=== PATIENT | male | born 1950 | race Caucasian/White ===

== ENCOUNTER 2022-03-14 09:36 | Emergency (ER) | payer BC, SELFPAY ==
[2022-03-14 09:38] VITALS: BP 192/98; PULSE 63; RESP 16; TEMP 36.5; O2SAT 100; BMI 21.1
--- NOTE | 2022-03-14 09:50 | ED.NEUROSD ---
HPI - Neuro Symptoms/Deficit General Chief Complaint: Neuro Symptoms/Deficit Stated Complaint: lightheaded, disoriented, shoulder/neck pain Time Seen by Provider: 03/14/22 09:49 Source: patient Mode of arrival: Ambulatory History of Present Illness HPI Narrative: Patient is a 71-year-old male history of TIA diabetes hypothyroid presenting today with some vague like symptoms. Feels like the last few days he wakes up every morning feels like his heart is pounding he has some lightheadedness. Sometimes it lasts throughout the day. He has not passed out. He has noticed some left-sided neck and arm achiness. He does not call it weakness. There is no numbness or tingling. He feels like he is having some trouble getting some words out although I do not appreciate such well conversing with him. Previously his TIA presented with left arm tingling and left eye visual field change. He is supposed to take aspirin but because of the bruising he stopped taking aspirin. Currently under lots of stress. He is here from [place] trying to get his mother into memory care. He says at night he has woken up drenching in sweat soaking through T shirts and sheets. For the last 2 years he occasionally gets a big chilled but really has not had fever or chills. He denies any cough pad. He has no chest heaviness or discomfort just occasional palpitations. On Anticoagulants: No Related Data Allergies Allergy/AdvReac Type Severity Reaction Status Date / Time No Known Drug Allergies Allergy Verified 03/14/22 09:48 Review of Systems Review of Systems Narrative: GENERAL: Denies chills, fatigue, malaise, fever, sweats, travel HEENT: Denies sinus pain, ear pain, sore throat, difficulty swallowing, neck pain RESPIRATORY: Denies dyspnea, cough, wheezing, hemoptysis, sputum. CARDIOVASCULAR: Denies chest pain, palpitations, orthopnea, edema GASTROINTESTINAL: Denies nausea, vomiting, abdominal pain, diarrhea, constipation, melena. : Denies dysuria, frequency, incontinence, hematuria, urinary retention, flank pain. MUSCULOSKELETAL: Denies weakness, joint pain, or bony pain SKIN: No rash, no erythema, no pruritus NEUROLOGIC: See HPI PSYCHIATRIC: No concerning psychosocial issues. 12 point review of systems is negative except for those stated above and HPI Hematologic/Lymphatic On Anticoagulants: No Patient History Medical History TIA (transient ischemic attack) Social History Smoking Status: Former smoker Smoking Status: Former smoker alcohol intake frequency: holidays/special occasions only Substance Use Type: marijuana Exam Initial Vital Signs Initial Vital Signs: Vital Signs Temperature 97.7 F 03/14/22 09:38 Pulse Rate 63 03/14/22 09:38 Respiratory Rate 16 03/14/22 09:38 Blood Pressure 192/98 H 03/14/22 09:38 Pulse Oximetry 100 03/14/22 09:38 Oxygen Delivery Method 03/14/22 09:38 GENERAL: Alert pleasant 71-year-old male and in no acute distress. HEENT: Head atraumatic,EOMI, pupils reactive, face symmetric, moist mucous membranes CARDIOVASCULAR: Regular rate and rhythm without murmurs, rubs or gallops. RESPIRATORY: Breath sounds equal bilaterally, no wheezes rales or rhonchi. ABDOMEN: Soft, nontender. Normoactive bowel sounds all 4 quadrants. No guarding or rebound. EXTREMITIES: Normal range of motion, no clubbing or edema. Neurovascularly intact NEUROLOGICAL: Alert and oriented x4.Normal gait and speech. Cranial nerves II through XII grossly intact. Good nlyidx-ey-riik, good rimj-xd-[id number], strength equal bilaterally, no dysarthria or aphasia, sensation in tact to soft touch bilaterally, no visual changes, no facial droop SKIN: Warm, dry, no laceration, no petechiae, no rashes or lesions. Scores NIH Stroke Scale Level of Conciousness: Alert, keenly responsive Ask month/age: Answers both questions correctly. Open/close eyes, close hand: Performs both tasks correctly Best gaze horizontal: Normal Visual paez: No visual loss Facial palsy: Normal symetrical movement Left arm drift: No drift for full 10 sec Right arm drift: No drift for full 10 sec Left leg drift: No drift for full 5 sec Right leg drift: No drift for full 5 sec Limb ataxia: Absent Sensory on face/arms/legs: Normal, no sensory loss Best language: No aphasia, normal Dysarthria: Normal Extinction or inattention: No abnormality Total NIH Stroke scale score: 0 Course Orders Ordered: ED Orders 03/14/22 09:48 Complete Blood Count AUTO DIFF Stat Comprehensive Metabolic Panel Stat Lipase Stat Partial Thromboplastin Time Stat Prothrombin Time INR Stat Troponin & CK Cardiac Panel Stat 03/14/22 10:01 CT angio head and neck Stat XR chest 1V Stat 03/14/22 10:07 EKG-12 Lead Stat Discontinued Medications Aspirin (Aspirin 81 Mg Chew Tab) 324 mg PO NOW ONE Stop: 03/14/22 10:02 Last Admin: 03/14/22 10:16 Dose: 324 mg Documented By: [facility] Vital Signs Vital signs: Vital Signs - 8 hr 03/14/22 09:38 03/14/22 10:14 03/14/22 10:15 Temperature 97.7 F Pulse Rate 63 69 Respiratory Rate 16 Blood Pressure 192/98 H 169/91 H Pulse Oximetry 100 Oxygen Delivery Method Room Air 03/14/22 10:15 03/14/22 10:30 03/14/22 10:30 Temperature Pulse Rate 61 64 Respiratory Rate 14 17 Blood Pressure 176/88 H Pulse Oximetry 97 Oxygen Delivery Method 03/14/22 10:45 03/14/22 10:45 03/14/22 11:00 Temperature Pulse Rate 56 L Respiratory Rate 16 Blood Pressure 163/84 H 159/81 H Pulse Oximetry 99 Oxygen Delivery Method 03/14/22 11:00 Temperature Pulse Rate 60 Respiratory Rate 12 Blood Pressure Pulse Oximetry 99 Oxygen Delivery Method MDM - Neuro Symptoms/Deficit Lab Data Result diagrams: 03/14/22 09:48 03/14/22 09:48 Labs: Lab Results 03/14/22 03/14/22 03/14/22 Range/Units 09:48 09:48 09:48 WBC 6.1 (4.5-11.0) X10^3/uL RBC 4.92 (4.5-5.9) X10^6/uL Hgb 15.2 (13.5-17.5) g/dL Hct 44.3 (41-53) % MCV 90.0 (80-100) fL MCH 30.8 (26-34) PG MCHC 34.2 (30-36) % RDW 14.3 (11.6-14.8) % Plt Count 197 (150-400) X10^3/uL Neut % (Auto) 68.7 (50-75) % Lymph % (Auto) 19.7 L (25-40) % [place] % (Auto) 9.2 (3-14) % Eos % (Auto) 1.8 L (2-4) % Baso % (Auto) 0.6 (0-2) % Neut # (Auto) 4200 (0458-3025) /uL Lymph # (Auto) 1200 (4094-7834) /uL [place] # (Auto) 600 (0-900) /uL Eos # (Auto) 100 (0-450) /uL Baso # (Auto) 0 (0-100) /uL PT 11.8 (10.1-12.7) SECONDS INR 1.0 (0.9-1.3) APTT 33 (26-36) SECONDS Sodium 141 (137-145) mmol/L Potassium 4.1 (3.4-5.1) mmol/L Chloride 104 (98-107) mmol/L Carbon Dioxide 29 (22-32) mmol/L BUN 14 (9-20) mg/dL Creatinine 0.77 (0.66-1.25) mg/dL Estimated GFR > 60 (>60) mL/min BUN/Creatinine Ratio 18.2 (6-22) Glucose 109 (80-110) mg/dL Calcium 9.2 (8.4-10.2) mg/dL Total Bilirubin 0.9 (0.2-1.3) mg/dL AST 33 (17-59) IU/L ALT 25 (<50) IU/L Alkaline Phosphatase 76 (38-126) U/L Total Creatine Kinase 113 (55-170) U/L CK-MB (CK-2) 1.74 (<2.37) ng/mL CK-MB (CK-2) Rel Index 1.5 (1.5-5.0) % Troponin I < 0.012 (0.01-0.034) ng/mL Total Protein 7.8 (6.3-8.2) g/dL Albumin 4.4 (3.5-5.0) g/dL Globulin 3.4 (1.7-4.1) g/dL Albumin/Globulin Ratio 1.3 (1.0-2.8) Lipase 74 (23-300) U/L Urine Dip Bedside Urine Glucose Negative Bedside Urine Bilirubin - Negative Bedside Urine Ketone - Negative Urine Specific [place] 1.01 Bedside Urine Occult Blood - Negative Bedside Urine pH 6.5 Bedside Urine Protein - Negative Bedside Urine Urobilinogen - Negative Bedside Urine Nitrite - Negative Bedside Urine Leukocytes - Negative Esterase Imaging Data CTA - brain/neck: Radiologist's Impression: CT Scan Report Signed Patient: Pawan Chavez MR#: [id number] : 1950 Acct:[id number] Age/Sex: 71 / M Date of Service: 03/14/22 Loc: ED Accession Number: [id number] ?? Procedure: CT angio head and neck Ordering Provider: Karin Robin D.O. PROCEDURE:? CT ANGIO HEAD AND NECK ? INDICATIONS:? word finding trouble no tpa ? TECHNIQUE:? Pre-contrast 4.5 mm thick sections acquired from the foramen magnum to the vertex.? After the administration of intravenous contrast, 1 mm thick sections acquired from the aortic arch through the [place] of [place].? Post-contrast 4.5 mm thick sections then re-acquired from the foramen magnum to the vertex.? 3-dimensional tvsxzvk-ngbjugctw-oepxmsatnf (MIP) and/or volume rendering reformats were acquired of the central intracranial vasculature and neck separately. For radiation dose reduction, the following was used:? automated exposure control, adjustment of mA and/or kV according to patient size.? ? COMPARISON:? [facility], CR, XR CHEST 1V, 03/14/2022, 10:13. ? FINDINGS:? Image quality:? Excellent.? ? BRAIN:? CSF spaces:? Ventricles are normal in size and shape.? Basal cisterns are patent.? No extra-axial fluid collections.? ? Brain:? No midline shift.? No intracranial bleeds or masses.? Good-white matter interface appears intact.? ? Skull and face:? Calvarium and facial bones appear intact, without suspicious lesions.? Orbits appear normal.? ? Sinuses:? There is a mucous retention cyst seen involving the lateral aspect of the left maxillary sinus.? Sinuses and mastoids are otherwise clear.? ? HEAD CT ANGIOGRAPHY:? Anterior circulation:? Intracranial internal carotid arteries are normal in size and flow.? The flow within the paired anterior cerebral arteries is normal and symmetric.? The flow within the middle cerebral arteries is normal and symmetric.? The anterior communicating artery is seen.? No aneurysms are seen.? ? Posterior circulation:? The right vertebral artery largely terminates in the right posterior inferior cerebellar artery.? The left V4 segment is within normal limits.? There is a normal appearing basilar artery.? Flow within the posterior cerebral arteries is normal and symmetric.? No aneurysms are seen.? ? NECK CT ANGIOGRAPHY:? Carotid system:? The great vessels demonstrate a conventional anatomy as they arise from the aortic arch.? The origins of the common carotid arteries appear patent.? The common carotid arteries demonstrate normal caliber and courses.? The bifurcation regions demonstrate atherosclerotic irregularity and calcification, with approximately 50% narrowing seen on the left and no hemodynamically significant stenosis seen on the right. ? Posterior circulation:? The origins of the vertebral arteries both demonstrate focal calcification, with approximately 70% narrowing on the right and approximately 30% narrowing seen on the left.? The more superior extracranial portions of both vertebral arteries also demonstrate normal courses and calibers.? The left vertebral artery is dominant to the right. ? Soft tissues:? Visualized neck soft tissues demonstrate no suspicious abnormalities.? ? Bones:? No suspicious bony lesions.? Visualized cervical spine appears normally aligned.? Lbaa-[id number] lower cervical spine degenerative changes are seen. ? ? IMPRESSION:? ? No acute intracranial process is seen.? No acute intracranial hemorrhage is seen.? - If there is strong clinical suspicion for an acute stroke, please consider a brain MRI for further evaluation, as it is more sensitive (assuming that there is no contraindication to MRI). ? No significant intracranial arterial abnormality is seen.? ? Focal calcification can be seen involving the carotid bifurcations, with approximately 50% narrowing seen involving the left proximal internal carotid artery. ? There is approximately 70% narrowing seen involving the right vertebral artery origin. ? ? Any quantitative measurements of stenosis were performed using NASCET criteria.? ? ? Dictated by: Carlos Carter M.D. on 03/14/2022 at 10:00 ? ? Approved by: Carlos Carter M.D. on 03/14/2022 at 10:05? Chest x-ray: Radiologist's Impression: Signed Patient: Pawan Chavez MR#: [id number] : 1950 Acct:[id number] Age/Sex: 71 / M Date of Service: 03/14/22 Loc: ED Accession Number: [id number] ?? Procedure: XR chest 1V Ordering Provider: Karin Robin D.O. PROCEDURE:? XR CHEST 1V ? INDICATIONS:? chest pain ? TECHNIQUE:? One view of the chest was acquired.? ? COMPARISON:? None. ? FINDINGS:? ? Surgical changes and devices:? None.? ? Lungs and pleura:? Lungs are clear.? No pleural effusions or pneumothorax.? ? Mediastinum:? Mediastinal contours appear normal.? Heart size is normal.? ? Bones and chest wall:? No suspicious bony lesions.? Overlying soft tissues appear unremarkable.? ? IMPRESSION:? No acute cardiopulmonary pathology. ? ? Dictated by: Victor Hugo Arreola M.D. on 03/14/2022 at 10:30 ? ECG Data Interpretation: Normal sinus rhythm rate 67 MD interval 192 QRS [address] changes no T-wave inversions no priors to compare MDM Narrative Medical decision making narrative: At this time patient really does not have any significant symptoms. Some mild ache in neck that has been there for the last 3 days or longer. Troponin is negative. CT angio does not show any kind of blockage. NIH is 0. Blood work is overall reassuring no sign of infection at this time no need for for admission. I encouraged him to take an aspirin 81 mg daily. This may or may not be related to stress of his mom. Previously his TIA sounded his like he had visual changes and tingling it does not sound quite like that today. Discharge Plan Departure Patient Disposition: Home Clinical Impression: TIA (transient ischemic attack) Instructions: DI for Transient Ischemic Attack Activity Restrictions/Additional Instructions: *You have been diagnosed with possible TIA today *What to do: Today your CT scan your blood work her overall reassuring. Your symptoms may are may not be related to stress versus TIA. I do recommend that he start taking 81 mg aspirin daily. *Continue to take medications as directed Aspirin 81 mg daily *Follow up with your primary care provider in 2-3 days or call [phone] *Return to ER if you should have difficulty speaking facial droop visual change weakness numbness tingling difficulty walking or any new, worsening or concerning symptoms Referrals: Miscellaneous,[facility] [Primary Care Provider] - Visit Report Forms: Patient Portal/API
--- NOTE | 2022-03-14 09:58 | PC.NURSE ---
Pt states he occasionally has a hard time finding his words, becomes light headed, c/o chest pain that radiates down his L arm for the past week while he is dealing with placing his mother in a halfway. Hx of TIA and anxiety
--- NOTE | 2022-03-14 10:01 | DI.RAD.S_ITS ---
PROCEDURE: XR CHEST 1V INDICATIONS: chest pain TECHNIQUE: One view of the chest was acquired. COMPARISON: None. FINDINGS: Surgical changes and devices: None. Lungs and pleura: Lungs are clear. No pleural effusions or pneumothorax. Mediastinum: Mediastinal contours appear normal. Heart size is normal. Bones and chest wall: No suspicious bony lesions. Overlying soft tissues appear unremarkable. IMPRESSION: No acute cardiopulmonary pathology. Dictated by: Victor Hugo Arreola M.D. on 03/14/2022 at 10:30 Approved by: Victor Hugo Arreola M.D. on 03/14/2022 at 10:38
--- NOTE | 2022-03-14 10:01 | DI.CT.S_ITS ---
PROCEDURE: CT ANGIO HEAD AND NECK INDICATIONS: word finding trouble no tpa TECHNIQUE: Pre-contrast 4.5 mm thick sections acquired from the foramen magnum to the vertex. After the administration of intravenous contrast, 1 mm thick sections acquired from the aortic arch through the [place] of [place]. Post-contrast 4.5 mm thick sections then re-acquired from the foramen magnum to the vertex. 3-dimensional rxppheb-fccrppzpo-lixukzgnfx (MIP) and/or volume rendering reformats were acquired of the central intracranial vasculature and neck separately. For radiation dose reduction, the following was used: automated exposure control, adjustment of mA and/or kV according to patient size. COMPARISON: [facility], CR, XR CHEST 1V, 03/14/2022, 10:13. FINDINGS: Image quality: Excellent. BRAIN: CSF spaces: Ventricles are normal in size and shape. Basal cisterns are patent. No extra-axial fluid collections. Brain: No midline shift. No intracranial bleeds or masses. Good-white matter interface appears intact. Skull and face: Calvarium and facial bones appear intact, without suspicious lesions. Orbits appear normal. Sinuses: There is a mucous retention cyst seen involving the lateral aspect of the left maxillary sinus. Sinuses and mastoids are otherwise clear. HEAD CT ANGIOGRAPHY: Anterior circulation: Intracranial internal carotid arteries are normal in size and flow. The flow within the paired anterior cerebral arteries is normal and symmetric. The flow within the middle cerebral arteries is normal and symmetric. The anterior communicating artery is seen. No aneurysms are seen. Posterior circulation: The right vertebral artery largely terminates in the right posterior inferior cerebellar artery. The left V4 segment is within normal limits. There is a normal appearing basilar artery. Flow within the posterior cerebral arteries is normal and symmetric. No aneurysms are seen. NECK CT ANGIOGRAPHY: Carotid system: The great vessels demonstrate a conventional anatomy as they arise from the aortic arch. The origins of the common carotid arteries appear patent. The common carotid arteries demonstrate normal caliber and courses. The bifurcation regions demonstrate atherosclerotic irregularity and calcification, with approximately 50% narrowing seen on the left and no hemodynamically significant stenosis seen on the right. Posterior circulation: The origins of the vertebral arteries both demonstrate focal calcification, with approximately 70% narrowing on the right and approximately 30% narrowing seen on the left. The more superior extracranial portions of both vertebral arteries also demonstrate normal courses and calibers. The left vertebral artery is dominant to the right. Soft tissues: Visualized neck soft tissues demonstrate no suspicious abnormalities. Bones: No suspicious bony lesions. Visualized cervical spine appears normally aligned. Njmp-ar-jnxlahsl lower cervical spine degenerative changes are seen. IMPRESSION: No acute intracranial process is seen. No acute intracranial hemorrhage is seen. - If there is strong clinical suspicion for an acute stroke, please consider a brain MRI for further evaluation, as it is more sensitive (assuming that there is no contraindication to MRI). No significant intracranial arterial abnormality is seen. Focal calcification can be seen involving the carotid bifurcations, with approximately 50% narrowing seen involving the left proximal internal carotid artery. There is approximately 70% narrowing seen involving the right vertebral artery origin. Any quantitative measurements of stenosis were performed using NASCET criteria. Dictated by: Carlos Carter M.D. on 03/14/2022 at 10:00 Approved by: Carlos Carter M.D. on 03/14/2022 at 10:05
[2022-03-14 10:12] LABS: Add Manual Diff / Slide Review NO; Basophils Absolute Auto 0 /uL (0-100); Basophils Percent Auto 0.6 % (0-2); Eosinophils Absolute Auto 100 /uL (0-450); Eosinophils Percent Auto 1.8 % (2-4); Hematocrit 44.3 % (41-53); Hemoglobin 15.2 g/dL (13.5-17.5); Lymphocytes Absolute Auto 1200 /uL (1100-4500); Lymphocytes Percent Auto 19.7 % (25-40); Mean Corpuscular HGB Conc 34.2 % (30-36); Mean Corpuscular Hemoglobin 30.8 PG (26-34); Monocytes Absolute Auto 600 /uL (0-900); Monocytes Percent Auto 9.2 % (3-14); Neutrophils Absolute Auto 4200 /uL (1500-7000); Neutrophils Percent Auto 68.7 % (50-75); Platelet Count 197 X10^3/uL (150-400); Red Blood Cell Count 4.92 X10^6/uL (4.5-5.9); Red Cell Distribution Width 14.3 % (11.6-14.8); White Blood Cell Count 6.1 X10^3/uL (4.5-11.0)
[2022-03-14 10:13] LABS: Prothrombin Time 11.8 SECONDS (10.1-12.7)
[2022-03-14 10:14] VITALS: PULSE 69
[2022-03-14 10:15] VITALS: BP 169/91; PULSE 61; RESP 14; O2SAT 97
[2022-03-14 10:16] LABS: PTT Partial Thromboplastin Tim 33 SECONDS (26-36)
[2022-03-14] MEDS: ASPIRIN 81 MG CHEW TAB 324 MG PO (10:16)
[2022-03-14 10:25] LABS: Alanine Aminotransferase 25 IU/L (<50); Albumin 4.4 g/dL (3.5-5.0); Albumin Globulin Ratio 1.3 (1.0-2.8); Alkaline Phosphatase 76 U/L (38-126); Aspartate Aminotransferase 33 IU/L (17-59); BUN Creatinine Ratio 18.2 (6-22); Bilirubin Total 0.9 mg/dL (0.2-1.3); Blood Urea Nitrogen 14 mg/dL (9-20); Calcium 9.2 mg/dL (8.4-10.2); Carbon Dioxide 29 mmol/L (22-32); Chloride 104 mmol/L (98-107); Creatine Kinase 113 U/L (55-170); Estimated Glomerular Filt Rate > 60 mL/min (>60); Globulin 3.4 g/dL (1.7-4.1); Glucose 109 mg/dL (80-110); Lipase 74 U/L (23-300); Potassium 4.1 mmol/L (3.4-5.1); Sodium 141 mmol/L (137-145); Total Protein 7.8 g/dL (6.3-8.2)
[2022-03-14 10:30] VITALS: BP 176/88; PULSE 64; RESP 17
[2022-03-14 10:30] LABS: HEMOLYSIS 65 (0-50)
[2022-03-14 10:37] LABS: Troponin I < 0.012 ng/mL (0.01-0.034)
[2022-03-14 10:40] LABS: CKMB % Relative Index 1.5 % (1.5-5.0); Creatine Kinase MB 1.74 ng/mL (<2.37)
[2022-03-14 10:45] VITALS: BP 163/84; PULSE 56; RESP 16; O2SAT 99
[2022-03-14 11:00] VITALS: BP 159/81; PULSE 60; RESP 12; O2SAT 99
== END 2022-03-14 11:33 | disposition home or self-care (01) ==
PROVIDERS: Emergency Provider Emergency Medicine
DX: G45.9 Transient cerebral ischemic attack, unspecified (principal); R07.9 Chest pain, unspecified
CPT/HCPCS: 36415; 70496; 70498; 71045; 80053; 81003; 82550; 82553; 83690; 84484; 85025; 85610; 85730; 93005; 93010; 99284; Q9967

== ENCOUNTER 2022-03-15 04:51 | Emergency (ER) | payer BC, SELFPAY ==
[2022-03-15] VITALS (9 sets, daily range): BP systolic 127–186; BP diastolic 83–102; PULSE 55–72; RESP 18; O2SAT 96–99
--- NOTE | 2022-03-15 05:18 | DI.RAD.S_ITS ---
PROCEDURE: XR CHEST 1V INDICATIONS: chest pain TECHNIQUE: One view of the chest was acquired. COMPARISON: [facility], CR, XR CHEST 1V, 03/14/2022, 10:13. FINDINGS: Surgical changes and devices: None. Lungs and pleura: Lungs are clear. No pleural effusions or pneumothorax. Mediastinum: Mediastinal contours appear normal. Heart size is normal. Bones and chest wall: No suspicious bony lesions. Overlying soft tissues appear unremarkable. IMPRESSION: No acute cardiopulmonary pathology. No discrepancies. Dictated by: Victor Hugo Arreola M.D. on 03/15/2022 at 8:32 Approved by: Vcitor Hugo Arreola M.D. on 03/15/2022 at 8:37
--- NOTE | 2022-03-15 05:18 | ED.NEUROSD ---
HPI - Neuro Symptoms/Deficit <Ester Ahumada DO - Last Filed: 03/17/22 18:43> General Chief Complaint: Neuro Symptoms/Deficit Stated Complaint: TIA Time Seen by Provider: 03/15/22 04:52 Source: patient Mode of arrival: Ambulatory Limitations: no limitations History of Present Illness HPI Narrative: 71-year-old male with history of TIA, pre diabetes, hypothyroidism and dyslipidemia with complaint of difficulty swallowing, left shoulder trapezial pain. Patient presented yesterday for evaluation of TIA. Patient states today his symptoms are different he states that he woke up at about 330 in the morning and around an hour later her he states that he does not have any issue. Patient states he has had some left-sided neck and trapezius achiness which he had present yesterday as well. He denies any speech changes, no slurred speech, no facial droop, no weakness of extremities, numbness or tingling. No changes with gait. Patient denies fevers or chills. No swelling of lips, airway or mouth, patient has not had any speech changes or new hoarseness. No postnasal drip cough. No cough cold or congestive symptoms. No chest pain or pressure. Denies any active shortness of breath. No diaphoresis. No nausea or vomiting. No diarrhea or constipation. He did feel a bit dizzy earlier this morning. Does not have his glucometer with him as he is visiting the area from [place]. Patient states that he has been quite stressed he has been caring for his mother who is had multiple medical issues and is visiting the area from [place] while doing this. Denies any new swelling of his extremities. Patient does not on a daily aspirin until started yesterday. He denies any prior surgeries besides dental surgeries. No known drug allergies. On Anticoagulants: No Related Data Previous Rx's Medication Instructions Recorded lorazepam 0.5 mg tablet (Ativan) 0.5 mg PO BID PRN anxiety #10 tabs 03/15/22 Allergies Allergy/AdvReac Type Severity Reaction Status Date / Time No Known Drug Allergies Allergy Verified 03/15/22 09:23 Review of Systems <Ester Ahumada DO - Last Filed: 03/17/22 18:43> Review of Systems ROS Unobtainable: All systems reviewed & are unremarkable except as noted in HPI and below Hematologic/Lymphatic On Anticoagulants: No Patient History <Ester Ahumada DO - Last Filed: 03/17/22 18:43> Medical History TIA (transient ischemic attack) Social History Smoking Status: Former smoker Smoking Status: Former smoker alcohol intake frequency: 0-2 drinks per day Substance Use Type: marijuana Exam <Ester Ahumada DO - Last Filed: 03/17/22 18:43> Narrative Exam Narrative: GEN: well nourished, well appearing male, alert and oriented x 3, patient appears to be in mild distress. HEENT: Atraumatic, pupils are equal round reactive to light, extraocular movements are intact, nares are clear, TMs are clear with no fluid, there is no conjunctival pallor. Throat is clear without any exudates, erythema, tonsillar enlargement or uvular deviation, no facial droop. No stridor, no difficulty with secretions. No hoarseness or muffled voice. HEART: Regular rate and rhythm without murmur, clicks, rubs. Pulses are equal in upper and lower extremities LUNGS:Lungs clear to auscultation, no wheezes, rales, crackles, chest moves symmetrically ABD:bowel sounds normal, soft, non-tender, no guarding, rebound, rigidity, no masses noted, no hepatosplenomegaly MSCL: Non-tender, no muscle atrophy, muscles strength 5/5 upper and lower extremities, full range of motion, normal gait NEURO:CN 2-12 intact, sensation normal, reflexes 2/4 upper and lower extremities. finger nose finger test normal, heel segovia test normal. SKIN: No rash, no erythema or other skin changes. Initial Vital Signs Initial Vital Signs: Vital Signs Pulse Rate 63 03/15/22 05:00 Respiratory Rate 18 03/15/22 05:00 Blood Pressure 186/102 H 03/15/22 05:00 Pulse Oximetry 99 03/15/22 05:00 Oxygen Delivery Method 03/15/22 05:00 <Meghan Quintana MD - Last Filed: 03/15/22 09:01> Initial Vital Signs Initial Vital Signs: Vital Signs Pulse Rate 63 03/15/22 05:00 Respiratory Rate 18 03/15/22 05:00 Blood Pressure 186/102 H 03/15/22 05:00 Pulse Oximetry 99 03/15/22 05:00 Oxygen Delivery Method 03/15/22 05:00 Course <Ester Ahumada DO - Last Filed: 03/17/22 18:43> Orders Ordered: ED Orders 03/15/22 EKG-12 Lead Routine 03/15/22 05:00 Complete Blood Count AUTO DIFF Stat Comprehensive Metabolic Panel Stat Lipase Stat NT-proBNP (BNP-Adult 18+) Stat Troponin & CK Cardiac Panel Stat 03/15/22 05:18 XR chest 1V Stat EKG-12 Lead Stat 03/15/22 05:30 COVID19 -Nasal RAPID/Pre-Proc Stat 03/15/22 06:55 Trop I [Troponin I] Stat Vital Signs Vital signs: Vital Signs - 8 hr 03/15/22 05:00 03/15/22 05:30 03/15/22 06:30 Pulse Rate 63 64 63 Respiratory Rate 18 Blood Pressure 186/102 H 127/83 167/93 H Pulse Oximetry 99 98 98 Oxygen Delivery Method Room Air Room Air 03/15/22 07:25 03/15/22 07:26 03/15/22 07:26 Pulse Rate 72 66 Respiratory Rate Blood Pressure 170/98 H Pulse Oximetry 97 98 Oxygen Delivery Method <Meghan Quintana MD - Last Filed: 03/15/22 09:01> Orders Ordered: ED Orders 03/15/22 EKG-12 Lead Routine 03/15/22 05:00 Complete Blood Count AUTO DIFF Stat Comprehensive Metabolic Panel Stat Lipase Stat NT-proBNP (BNP-Adult 18+) Stat Troponin & CK Cardiac Panel Stat 03/15/22 05:18 XR chest 1V Stat EKG-12 Lead Stat 03/15/22 05:30 COVID19 -Nasal RAPID/Pre-Proc Stat 03/15/22 06:55 Trop I [Troponin I] Stat Vital Signs Vital signs: Vital Signs - 8 hr 03/15/22 05:00 03/15/22 05:30 03/15/22 06:30 Pulse Rate 63 64 63 Respiratory Rate 18 Blood Pressure 186/102 H 127/83 167/93 H Pulse Oximetry 99 98 98 Oxygen Delivery Method Room Air Room Air 03/15/22 07:25 03/15/22 07:26 03/15/22 07:26 Pulse Rate 72 66 Respiratory Rate Blood Pressure 170/98 H Pulse Oximetry 97 98 Oxygen Delivery Method MDM - Neuro Symptoms/Deficit <Etserximena Ahumada, - Last Filed: 03/17/22 18:43> Lab Data Result diagrams: 03/15/22 05:00 03/15/22 05:00 Labs: Lab Results 03/15/22 03/15/22 03/15/22 Range/Units 05:00 05:00 05:30 WBC 6.9 (4.5-11.0) X10^3/uL RBC 4.69 (4.5-5.9) X10^6/uL Hgb 14.2 (13.5-17.5) g/dL Hct 42.0 (41-53) % MCV 89.5 (80-100) fL MCH 30.3 (26-34) PG MCHC 33.9 (30-36) % RDW 14.1 (11.6-14.8) % Plt Count 197 (150-400) X10^3/uL Neut % (Auto) 68.6 (50-75) % Lymph % (Auto) 19.6 L (25-40) % Swisher % (Auto) 8.5 (3-14) % Eos % (Auto) 2.7 (2-4) % Baso % (Auto) 0.6 (0-2) % Neut # (Auto) 4800 (8647-8250) /uL Lymph # (Auto) 1400 (0866-3442) /uL Swisher # (Auto) 600 (0-900) /uL Eos # (Auto) 200 (0-450) /uL Baso # (Auto) 0 (0-100) /uL Sodium 140 (137-145) mmol/L Potassium 3.5 (3.4-5.1) mmol/L Chloride 102 (98-107) mmol/L Carbon Dioxide 29 (22-32) mmol/L BUN 16 (9-20) mg/dL Creatinine 0.80 (0.66-1.25) mg/dL Estimated GFR > 60 (>60) mL/min BUN/Creatinine Ratio 20.0 (6-22) Glucose 132 H (80-110) mg/dL Calcium 8.8 (8.4-10.2) mg/dL Total Bilirubin 0.6 (0.2-1.3) mg/dL AST 27 (17-59) IU/L ALT 25 (<50) IU/L Alkaline Phosphatase 85 (38-126) U/L Total Creatine Kinase 92 (55-170) U/L CK-MB (CK-2) TNP CK-MB (CK-2) Rel Index TNP Troponin I < 0.012 (0.01-0.034) ng/mL NT-Pro-B Natriuret Pep 33 (<125) pg/mL Total Protein 7.3 (6.3-8.2) g/dL Albumin 4.3 (3.5-5.0) g/dL Globulin 3.0 (1.7-4.1) g/dL Albumin/Globulin Ratio 1.4 (1.0-2.8) Lipase 78 (23-300) U/L SARS-CoV-2 (PCR) Negative (Negative) 03/15/22 Range/Units 06:55 WBC (4.5-11.0) X10^3/uL RBC (4.5-5.9) X10^6/uL Hgb (13.5-17.5) g/dL Hct (41-53) % MCV (80-100) fL MCH (26-34) PG MCHC (30-36) % RDW (11.6-14.8) % Plt Count (150-400) X10^3/uL Neut % (Auto) (50-75) % Lymph % (Auto) (25-40) % Swisher % (Auto) (3-14) % Eos % (Auto) (2-4) % Baso % (Auto) (0-2) % Neut # (Auto) (4924-2929) /uL Lymph # (Auto) (3775-0026) /uL Swisher # (Auto) (0-900) /uL Eos # (Auto) (0-450) /uL Baso # (Auto) (0-100) /uL Sodium (137-145) mmol/L Potassium (3.4-5.1) mmol/L Chloride (98-107) mmol/L Carbon Dioxide (22-32) mmol/L BUN (9-20) mg/dL Creatinine (0.66-1.25) mg/dL Estimated GFR (>60) mL/min BUN/Creatinine Ratio (6-22) Glucose (80-110) mg/dL Calcium (8.4-10.2) mg/dL Total Bilirubin (0.2-1.3) mg/dL AST (17-59) IU/L ALT (<50) IU/L Alkaline Phosphatase (38-126) U/L Total Creatine Kinase (55-170) U/L CK-MB (CK-2) CK-MB (CK-2) Rel Index Troponin I < 0.012 (0.01-0.034) ng/mL NT-Pro-B Natriuret Pep (<125) pg/mL Total Protein (6.3-8.2) g/dL Albumin (3.5-5.0) g/dL Globulin (1.7-4.1) g/dL Albumin/Globulin Ratio (1.0-2.8) Lipase (23-300) U/L SARS-CoV-2 (PCR) (Negative) Point of Care Testing Glucose POC 125 Imaging Data Chest x-ray: Radiologist's Impression: No acute cardiopulmonary disease. ECG Data Attestation: I personally reviewed and interpreted this ECG as follows: Prior ECG tracings: available for review Interpretation: Sinus bradycardia, rate of 59, pr 186, qrs 102, qtc 397. No acute ST changes. Q wave in 3, Patient has prior from 03/14/[address] changes. EKG2. Sinus bradycardia rate of 50 9p are 186 QRS of 102 and QTC 397. No acute ST changes appreciated. MDM Narrative Medical decision making narrative: This is a 71-year-old male who presents with concern for TIA but does not have any active TIA symptoms. He states he feels like it is a little bit difficult to swallow although he is not actually having any difficulty drinking fluids. He is not having any difficulty with his airway. He does admit to some left neck and upper trapezius pain which was present yesterday. Patient did have an EKG and troponin yesterday which did not show acute change, he does have a history prior TIA, he restarted aspirin 81 mg yesterday he did a dose this morning along with his metformin, atorvastatin and armour thyroid medication. Cardiac workup was initiated for possible atypical chest pain, COVID swab included. Patient initial cardiac workup does not have any acute changes repeat troponin EKG at 7:00 a.m.. EKG does not show any dynamic changes. Patient signed out to Dr. Soriano while awaiting repeat troponin. Patient was able to have some conversation with family and is quite emotional and tearful they have been estranged for some time and we are having a very positive conversation but patient states this may be contributing to his symptoms. He states his swallowing feels normal. Patient signed out to Dr. Quintana while awaiting second troponin. Repeat EKG is unchanged. 830am care is established. Chart is reviewed, patient is independently evaluated. Repeat troponin is unremarkable as is repeat EKG. Patient has been seen twice now for left-sided neck shoulder pain chest pain with full stroke as well as cardiac workup and negative findings. He is under quite a bit of psychosocial stressors and does recognize that his symptoms might be stress related. At this point I am not finding physical reasons or concerns for additional workup for hospital admission. We discuss stressors and acute disorders. Will have him use 0.5 mg of Ativan as needed should he have such an episode to awake him again. Concerns and findings with Ativan as well as possible addiction potential are reviewed prior to prescription. Questions are answered and he is safe for home discharge <Meghan Quintana MD - Last Filed: 03/15/22 09:01> Lab Data Labs: Lab Results 03/15/22 03/15/22 03/15/22 Range/Units 05:00 05:00 05:30 WBC 6.9 (4.5-11.0) X10^3/uL RBC 4.69 (4.5-5.9) X10^6/uL Hgb 14.2 (13.5-17.5) g/dL Hct 42.0 (41-53) % MCV 89.5 (80-100) fL MCH 30.3 (26-34) PG MCHC 33.9 (30-36) % RDW 14.1 (11.6-14.8) % Plt Count 197 (150-400) X10^3/uL Neut % (Auto) 68.6 (50-75) % Lymph % (Auto) 19.6 L (25-40) % Swisher % (Auto) 8.5 (3-14) % Eos % (Auto) 2.7 (2-4) % Baso % (Auto) 0.6 (0-2) % Neut # (Auto) 4800 (5645-6568) /uL Lymph # (Auto) 1400 (1299-8439) /uL Swisher # (Auto) 600 (0-900) /uL Eos # (Auto) 200 (0-450) /uL Baso # (Auto) 0 (0-100) /uL Sodium 140 (137-145) mmol/L Potassium 3.5 (3.4-5.1) mmol/L Chloride 102 (98-107) mmol/L Carbon Dioxide 29 (22-32) mmol/L BUN 16 (9-20) mg/dL Creatinine 0.80 (0.66-1.25) mg/dL Estimated GFR > 60 (>60) mL/min BUN/Creatinine Ratio 20.0 (6-22) Glucose 132 H (80-110) mg/dL Calcium 8.8 (8.4-10.2) mg/dL Total Bilirubin 0.6 (0.2-1.3) mg/dL AST 27 (17-59) IU/L ALT 25 (<50) IU/L Alkaline Phosphatase 85 (38-126) U/L Total Creatine Kinase 92 (55-170) U/L CK-MB (CK-2) TNP CK-MB (CK-2) Rel Index TNP Troponin I < 0.012 (0.01-0.034) ng/mL NT-Pro-B Natriuret Pep 33 (<125) pg/mL Total Protein 7.3 (6.3-8.2) g/dL Albumin 4.3 (3.5-5.0) g/dL Globulin 3.0 (1.7-4.1) g/dL Albumin/Globulin Ratio 1.4 (1.0-2.8) Lipase 78 (23-300) U/L SARS-CoV-2 (PCR) Negative (Negative) 03/15/22 Range/Units 06:55 WBC (4.5-11.0) X10^3/uL RBC (4.5-5.9) X10^6/uL Hgb (13.5-17.5) g/dL Hct (41-53) % MCV (80-100) fL MCH (26-34) PG MCHC (30-36) % RDW (11.6-14.8) % Plt Count (150-400) X10^3/uL Neut % (Auto) (50-75) % Lymph % (Auto) (25-40) % Swisher % (Auto) (3-14) % Eos % (Auto) (2-4) % Baso % (Auto) (0-2) % Neut # (Auto) (7851-0052) /uL Lymph # (Auto) (4865-3094) /uL Swisher # (Auto) (0-900) /uL Eos # (Auto) (0-450) /uL Baso # (Auto) (0-100) /uL Sodium (137-145) mmol/L Potassium (3.4-5.1) mmol/L Chloride (98-107) mmol/L Carbon Dioxide (22-32) mmol/L BUN (9-20) mg/dL Creatinine (0.66-1.25) mg/dL Estimated GFR (>60) mL/min BUN/Creatinine Ratio (6-22) Glucose (80-110) mg/dL Calcium (8.4-10.2) mg/dL Total Bilirubin (0.2-1.3) mg/dL AST (17-59) IU/L ALT (<50) IU/L Alkaline Phosphatase (38-126) U/L Total Creatine Kinase (55-170) U/L CK-MB (CK-2) CK-MB (CK-2) Rel Index Troponin I < 0.012 (0.01-0.034) ng/mL NT-Pro-B Natriuret Pep (<125) pg/mL Total Protein (6.3-8.2) g/dL Albumin (3.5-5.0) g/dL Globulin (1.7-4.1) g/dL Albumin/Globulin Ratio (1.0-2.8) Lipase (23-300) U/L SARS-CoV-2 (PCR) (Negative) Point of Care Testing Glucose POC 125 Imaging Data Chest x-ray: My Impression: Mild flattening of the diaphragm, no acute cardiopulmonary changes. No pulmonary infiltrates, no pneumothorax. Bony skeleton is unremarkable. ECG Data Interpretation: Sinus bradycardia, rate of 59, pr 186, qrs 102, qtc 397. No acute ST changes. Q wave in 3, Patient has prior from 03/14/[address] changes. EKG2. Sinus bradycardia rate of 50 9p are 186 QRS of 102 and QTC 397. No acute ST changes appreciated. 7am Sinus Alexis at 56 Left axis deviation No acute ischemic changes No significant changes compared to EKG at 5:21 a.m. this morning MDM Narrative Medical decision making narrative: This is a 71-year-old male who presents with concern for TIA but does not have any active TIA symptoms. He states he feels like it is a little bit difficult to swallow although he is not actually having any difficulty drinking fluids. He is not having any difficulty with his airway. He does admit to some left neck and upper trapezius pain which was present yesterday. Patient did have an EKG and troponin yesterday which did not show acute change, he does have a history prior TIA, he restarted aspirin 81 mg yesterday he did a dose this morning along with his metformin, atorvastatin and armour thyroid medication. Cardiac workup was initiated for possible atypical chest pain, COVID swab included. Patient initial cardiac workup does not have any acute changes repeat troponin EKG at 7:00 a.m.. EKG does not show any dynamic changes. Patient signed out to Dr. Soriano while awaiting repeat troponin. Patient was able to have some conversation with family and is quite emotional and tearful they have been estranged for some time and we are having a very positive conversation but patient states this may be contributing to his symptoms. He states his swallowing feels normal. 830am care is established. Chart is reviewed, patient is independently evaluated. Repeat troponin is unremarkable as is repeat EKG. Patient has been seen twice now for left-sided neck shoulder pain chest pain with full stroke as well as cardiac workup and negative findings. He is under quite a bit of psychosocial stressors and does recognize that his symptoms might be stress related. At this point I am not finding physical reasons or concerns for additional workup for hospital admission. We discuss stressors and acute disorders. Will have him use 0.5 mg of Ativan as needed should he have such an episode to awake him again. Concerns and findings with Ativan as well as possible addiction potential are reviewed prior to prescription. Questions are answered and he is safe for home discharge Discharge Plan Departure Patient Disposition: Home Clinical Impression: Acute situational disturbance Activity Restrictions/Additional Instructions: Thank you for coming in today With the extensive workup done in the emergency department yesterday and today, I do not think that this is an acute stroke or stroke-like symptom nor do I think that this is a heart attack or heart attack like syndrome. I suspect that this is related to acute situational disturbance. It sounds like there is a lot of emotional issues that you are currently working through. Dealing with parents, dementia, aging and issues from the past all at the same time can be completely overwhelming. I am going to suggest that you try 0.5 mg of Ativan/lorazepam should do wake up in the middle of the night with similar anxiety type problems. I am pleased that you have already scheduled appointment with your primary care physician back in [place] and encouraged to keep this. I a.m. going to give you copies of ER notes from yesterday and today as well as EKGs to share with her primary care doctor so you do not need to repeat some of the studies that we have done here in [place]. I wish you the very best Prescriptions: New lorazepam [Ativan] 0.5 mg tablet 0.5 mg PO BID PRN (Reason: anxiety) Qty: 10 0RF Referrals: Miscellaneous,Doctor, MD [Primary Care Provider] - Visit Report Forms: Patient Portal/API
[2022-03-15 05:29] LABS: Add Manual Diff / Slide Review NO; Basophils Absolute Auto 0 /uL (0-100); Basophils Percent Auto 0.6 % (0-2); Eosinophils Absolute Auto 200 /uL (0-450); Eosinophils Percent Auto 2.7 % (2-4); Hemoglobin 14.2 g/dL (13.5-17.5); Lymphocytes Absolute Auto 1400 /uL (1100-4500); Lymphocytes Percent Auto 19.6 % (25-40); Mean Corpuscular HGB Conc 33.9 % (30-36); Mean Corpuscular Hemoglobin 30.3 PG (26-34); Mean Corpuscular Volume 89.5 fL (80-100); Monocytes Absolute Auto 600 /uL (0-900); Monocytes Percent Auto 8.5 % (3-14); Neutrophils Absolute Auto 4800 /uL (1500-7000); Neutrophils Percent Auto 68.6 % (50-75); Platelet Count 197 X10^3/uL (150-400); Red Blood Cell Count 4.69 X10^6/uL (4.5-5.9); Red Cell Distribution Width 14.1 % (11.6-14.8); White Blood Cell Count 6.9 X10^3/uL (4.5-11.0)
[2022-03-15 05:37] LABS: Alanine Aminotransferase 25 IU/L (<50); Albumin 4.3 g/dL (3.5-5.0); Albumin Globulin Ratio 1.4 (1.0-2.8); Alkaline Phosphatase 85 U/L (38-126); Aspartate Aminotransferase 27 IU/L (17-59); Bilirubin Total 0.6 mg/dL (0.2-1.3); Blood Urea Nitrogen 16 mg/dL (9-20); Calcium 8.8 mg/dL (8.4-10.2); Carbon Dioxide 29 mmol/L (22-32); Chloride 102 mmol/L (98-107); Creatine Kinase 92 U/L (55-170); Estimated Glomerular Filt Rate > 60 mL/min (>60); Glucose 132 mg/dL (80-110); HEMOLYSIS < 15 (0-50); Lipase 78 U/L (23-300); Potassium 3.5 mmol/L (3.4-5.1); Sodium 140 mmol/L (137-145); Total Protein 7.3 g/dL (6.3-8.2)
[2022-03-15 05:49] LABS: COVID19 -Nasal RAPID Negative (Negative)
[2022-03-15 05:49] LABS: NT-proBNP (BNP-Adult 18+) 33 pg/mL (<125); Troponin I < 0.012 ng/mL (0.01-0.034)
[2022-03-15 07:24] LABS: Troponin I < 0.012 ng/mL (0.01-0.034)
== END 2022-03-15 09:22 | disposition home or self-care (01) ==
PROVIDERS: Emergency Provider Emergency Medicine
DX: F43.0 Acute stress reaction (principal); R07.9 Chest pain, unspecified; Z20.822 Contact with and (suspected) exposure to COVID-19
CPT/HCPCS: 71045; 80053; 82550; 82962; 83690; 83880; 84484; 85025; 87635; 93005; 93010; 99282; 99284; C9803